=== PATIENT | female | born 1960 | race African-American/Black ===

== ENCOUNTER 2017-08-10 07:45 | Emergency (ER) | payer MEDICAID, OTHER ==
[~2017-08-10] VITALS: Ht 170.2 cm; Wt 75.0 kg
[2017-08-10 07:52] VITALS: BP 204/84; PULSE 67; RESP 16; TEMP 98; O2SAT 99
[2017-08-10 08:07] VITALS: BP 159/68; PULSE 66; RESP 15; O2SAT 100
[2017-08-10] MEDS ORDERED: SIMV10TA PO (08:07)
[2017-08-10] MEDS ORDERED: COUM10TA PO (08:07)
[2017-08-10] MEDS ORDERED: CLON0.2T PO (08:07)
[2017-08-10] MEDS ORDERED: AMBI10TA PO (08:07)
[2017-08-10] MEDS ORDERED: LISI-515 PO (08:07)
[2017-08-10] MEDS ORDERED: ACETAMINOPHEN 325 MG TAB PO ONE (08:15)
[2017-08-10 08:35] LABS: AUTOMATED NEUTROPHIL # 3.3 TH/MM3 (1.8-7.7); BASOPHIL % 0.4 % (0.0-2.0); EOSINOPHIL # 0.1 TH/MM3 (0-0.4); EOSINOPHIL % 1.8 % (0.0-4.0); HEMATOCRIT 35.5 % (35.0-46.0); HEMOGLOBIN 12.4 GM/DL (11.6-15.3); LYMPH % 28.2 % (9.0-44.0); LYMPHOCYTE # 1.6 TH/MM3 (1.0-4.8); MEAN CELL VOLUME 95.9 FL (80.0-100.0); MEAN CORPUSCULAR HEMOGLOBIN 33.4 PG (27.0-34.0); MEAN CORPUSCULAR HGB CONC 34.8 % (32.0-36.0); MEAN PLATELET VOLUME 10.5 FL (7.0-11.0); MONOCYTE # 0.6 TH/MM3 (0-0.9); NEUT % 59.6 % (16.0-70.0); PLATELET COUNT 177 TH/MM3 (150-450); RED BLOOD COUNT 3.71 MIL/MM3 (4.00-5.30); RED CELL DISTRIBUTION WIDTH 13.8 % (11.6-17.2); WHITE BLOOD COUNT 5.5 TH/MM3 (4.0-11.0)
[2017-08-10 08:50] LABS: INTERNATIONAL NORMALIZED RATIO 2.8 RATIO; PROTHROMBIN TIME - PATIENT 28.3 SEC (9.8-11.6)
--- NOTE | 2017-08-10 08:57 | RADRPT ---
EXAM DATE: 08/10/2017 8:26 AM EDT AGE/SEX: 57 years / Female INDICATIONS: High blood pressure with headache CLINICAL DATA: This is the patient's initial encounter. Patient reports that signs and symptoms have been present for 2 days and indicates a pain score of 4/10. MEDICAL/SURGICAL HISTORY: Hypertension. CABG. RADIATION DOSE: 52.13 CTDI (mGy) COMPARISON: No prior exams available for comparison. TECHNIQUE: CT of the head without contrast. Using automated exposure control and adjustment of the mA and/or kV according to patient size, radiation dose was kept as low as reasonably achievable to ob tain optimal diagnostic quality images. DICOM format image data is available electronically for revi ew and comparison. FINDINGS: Cerebrum: There is a 1 cm hypodense region in the left basal ganglia with associated encephalomalaci a likely reflecting an old basal ganglia infarct. Ventricles are normal for age. No evidence of midli ne shift, mass lesion, hemorrhage or acute infarction. No extraaxial fluid collections are seen. Posterior Fossa: The cerebellum and brainstem are intact. The 4th ventricle is midline. The cerebe llopontine angle is unremarkable. Extracranial: The visualized portion of the orbits is intact. Skull: The calvaria is intact. No evidence of skull fracture. CONCLUSION: 1. 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 2. No acute intracranial abnormality. Electronically signed by: Liu Jamison MD 08/10/2017 8:56 AM EDT
[2017-08-10 09:00] LABS: ALKALINE PHOSPHATASE 80 U/L (45-117); TOTAL BILIRUBIN ADULT 0.4 MG/DL (0.2-1.0); TOTAL PROTEIN 7.6 GM/DL (6.4-8.2); TROPONIN I LESS THAN 0.02 NG/ML (0.02-0.05)
[2017-08-10 09:15] LABS: ALBUMIN 3.5 GM/DL (3.4-5.0); ALT (GPT) 17 U/L (10-53); BICARBONATE 25.3 MEQ/L (21.0-32.0); BLOOD UREA NITROGEN 10 MG/DL (7-18); CALCIUM 8.6 MG/DL (8.5-10.1); CHLORIDE 110 MEQ/L (98-107); CREATININE 0.83 MG/DL (0.50-1.00); GLOMERULAR FILTRATION RATE 71 ML/MIN (>89); GLUCOSE,RANDOM 126 MG/DL (74-106); SODIUM (NA) 143 MEQ/L (136-145)
[2017-08-10] MEDS ORDERED: hydrALAZINE HCL 20 MG/ML VIAL IV PUSH ONE (09:15)
[2017-08-10 09:19] LABS: AST (GOT) 45 U/L (15-37)
[2017-08-10 09:48] VITALS: BP 201/86; PULSE 60; RESP 18; O2SAT 99
[2017-08-10] MEDS ORDERED: amLODIPine BESYLATE 5 MG TAB PO ONE (10:00)
[2017-08-10] MEDS ORDERED: FURO1TAB62 PO (10:32)
[2017-08-10] MEDS ORDERED: KETOROLAC TROMETHAMINE 30 MG/ML (IVP) VIAL IV PUSH ONE (11:15)
[2017-08-10] MEDS ORDERED: diphenhydrAMINE HCL 50 MG/ML VIAL IV PUSH ONE (11:15)
[2017-08-10] MEDS ORDERED: PROCHLORPERAZINE INJ 10 MG/2 ML VIAL IV PUSH ONE (11:15)
[2017-08-10 11:57] VITALS: BP 198/87; PULSE 61; RESP 18; O2SAT 99
[2017-08-10 12:52] VITALS: BP 207/88; PULSE 55; RESP 18; O2SAT 99
[2017-08-10] MEDS ORDERED: AMLO5TAB2 PO (13:10)
--- NOTE | 2017-08-10 13:10 | PD ---
HPI Chief Complaint: Hypertension Time Seen by Provider: 08:01 Travel History International Travel<30 days: No Contact w/Intl Traveler<30days: No Traveled to known affect area: No History of Present Illness HPI Patient is a 57-year-old female who comes in complaining of high blood pressure and a headache. She says she has been having issues with her blood pressure for several days now. She has taken it several times each day and noted it to be high. She is currently taking lisinopril and clonidine for her blood pressure and says it does not seem to be helping. She says she has a right- sided headache that has been coming and going. She says she gets this headache often when her blood pressure is too high. She denies nausea or vomiting. She denies any blurred vision. She denies any chest pain or shortness of breath. She denies nausea or vomiting. Severity is mild. 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) Social History Alcohol Use: Yes (occassional) Tobacco Use: Yes Substance Use: No Allergies-Medications (Allergen,Severity, Reaction): Coded Allergies: caffeine (Verified Allergy, Unknown, 08/10/17) Reported Meds & Prescriptions Reported Meds & Active Scripts Active Reported Lasix (Furosemide) 20 Mg Tab 20 Mg PO DAILY Ambien (Zolpidem Tartrate) 10 Mg Tab 10 Mg PO HS PRN Clonidine (Clonidine HCl) 0.2 Mg Tab 0.2 Mg PO BID Coumadin (Warfarin) 10 Mg Tab 10 Mg PO DAILY Simvastatin 10 Mg Tab 10 Mg PO DAILY Lisinopril 20 Mg Tab 20 Mg PO DAILY Review of Systems Except as stated in HPI: all other systems reviewed are Neg General / Constitutional: No: Fever, Chills Eyes: No: Blurred Vision HENT: Positive: Headaches Cardiovascular: No: Chest Pain or Discomfort Respiratory: No: Shortness of Breath Gastrointestinal: No: Nausea, Vomiting Musculoskeletal: No: Myalgias, Edema Skin: No Rash, No Change in Pigmentation Neurologic: No: Weakness, Dizziness Physical Exam Narrative GENERAL: Awake and alert, no acute distress. SKIN: Focused skin assessment warm/dry. HEAD: Atraumatic. Normocephalic. EYES: Pupils equal and round and reactive. No scleral icterus. Extraocular movements intact. ENT: Mucous membranes pink and moist. NECK: Trachea midline. No JVD. CARDIOVASCULAR: Regular rate and rhythm. No murmur appreciated. RESPIRATORY: No accessory muscle use. Clear to auscultation. Breath sounds equal bilaterally. GASTROINTESTINAL: Abdomen soft, non-tender, nondistended. MUSCULOSKELETAL: No obvious deformities. No clubbing. No cyanosis. No edema. NEUROLOGICAL: Awake and alert. No obvious cranial nerve deficits. Motor grossly within normal limits. Normal speech. PSYCHIATRIC: Appropriate mood and affect; insight and judgment normal. Data Data Last Documented VS Vital Signs Date Time Temp Pulse Resp B/P (MAP) Pulse Ox O2 Delivery O2 Flow Rate FiO2 08/10/17 12:52 55 18 207/88 (127) 99 Room Air 08/10/17 07:52 98.0 Orders Orders Iv Access Insert/Monitor (08/10/17 08:11) Complete Blood Count With Diff (08/10/17 08:11) Comprehensive Metabolic Panel (08/10/17 08:11) Troponin I (08/10/17 08:11) Electrocardiogram (08/10/17 ) Ct Brain W/O Iv Contrast(Rout) (08/10/17 ) Acetaminophen (Tylenol) (08/10/17 08:15) Act Partial Throm Time (Ptt) (08/10/17 08:21) Prothrombin Time / Inr (Pt) (08/10/17 08:21) Hydralazine Inj (Apresoline Inj) (08/10/17 09:15) Amlodipine (Norvasc) (08/10/17 10:00) Ketorolac Inj (Toradol Inj) (08/10/17 11:15) Diphenhydramine Inj (Benadryl Inj) (08/10/17 11:15) Prochlorperazine Inj (Compazine Inj) (08/10/17 11:15) Labs Laboratory Tests Test 08/10/17 08:20 White Blood Count 5.5 TH/MM3 Red Blood Count 3.71 MIL/MM3 Hemoglobin 12.4 GM/DL Hematocrit 35.5 % Mean Corpuscular Volume 95.9 FL Mean Corpuscular Hemoglobin 33.4 PG Mean Corpuscular Hemoglobin Concent 34.8 % Red Cell Distribution Width 13.8 % Platelet Count 177 TH/MM3 Mean Platelet Volume 10.5 FL Neutrophils (%) (Auto) 59.6 % Lymphocytes (%) (Auto) 28.2 % Monocytes (%) (Auto) 10.0 % Eosinophils (%) (Auto) 1.8 % Basophils (%) (Auto) 0.4 % Neutrophils # (Auto) 3.3 TH/MM3 Lymphocytes # (Auto) 1.6 TH/MM3 Monocytes # (Auto) 0.6 TH/MM3 Eosinophils # (Auto) 0.1 TH/MM3 Basophils # (Auto) 0.0 TH/MM3 CBC Comment DIFF FINAL Differential Comment Prothrombin Time 28.3 SEC Prothromb Time International Ratio 2.8 RATIO Activated Partial Thromboplast Time 41.3 SEC Blood Urea Nitrogen 10 MG/DL Creatinine 0.83 MG/DL Random Glucose 126 MG/DL Total Protein 7.6 GM/DL Albumin 3.5 GM/DL Calcium Level 8.6 MG/DL Alkaline Phosphatase 80 U/L Aspartate Amino Transf (AST/SGOT) 45 U/L Alanine Aminotransferase (ALT/SGPT) 17 U/L Total Bilirubin 0.4 MG/DL Sodium Level 143 MEQ/L Potassium Level 4.6 MEQ/L Chloride Level 110 MEQ/L Carbon Dioxide Level 25.3 MEQ/L Anion Gap 8 MEQ/L Estimat Glomerular Filtration Rate 71 ML/MIN Troponin I LESS THAN 0.02 NG/ML MDM Medical Decision Making Medical Screen Exam Complete: Yes Emergency Medical Condition: Yes Medical Record Reviewed: Yes Interpretation(s) ECG shows normal sinus rhythm at a rate of 59, no ST elevation or depression, normal intervals Differential Diagnosis High blood pressure versus acute kidney injury versus migraine Narrative Course Patient is a 57-year-old female who comes in complaining of high blood pressure and headache. Exam shows no neurologic abnormalities. IV established, labs sent. Labs show no acute abnormalities. CT head performed shows no acute abnormalities. Last [address] 08/10/17 0000 Signed Impressions: CONCLUSION: 1. 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 2. No acute intracranial abnormality. Patient is on lisinopril and clonidine. Given a dose of amlodipine. Given a second dose of clonidine. She is given treatment for her headache, which she says has improved her pain. She is advised to follow-up with her doctor as she will need better blood pressure control. Advised return to the ED as needed for any worsening symptoms. Diagnosis Primary Impression: Hypertension Qualified Codes: I10 - Essential (primary) hypertension Patient Instructions: General Instructions, Hypertension (ED) Additional Instructions: Take all of your blood pressure medications. Follow-up with your doctor. Return anytime for any worsening symptoms. Scripts Amlodipine (Amlodipine) 5 Mg Tab 5 MG PO DAILY for Blood Pressure Management, #14 TAB 0 Refills Prov: Leigh Lopez MD 08/10/17 Disposition: 01 DISCHARGE HOME Condition: Stable Leigh Lopez MD Aug 10, 2017 13:10
[2017-08-10] MEDS ORDERED: cloNIDine HCL 0.2 MG TAB PO ONE (13:15)
--- NOTE | 2017-08-10 17:43 | EKG ---
Date Performed: 08/10/2017 Time Performed: 08:52:29 PTAGE: 57 years EKG: SINUS BRADYCARDIA POSSIBLE LEFT ATRIAL ENLARGEMENT NONSPECIFIC T-WAVE ABNORMALITY ABNORMAL ECG NO PREVIOUS TRACING DOCTOR: Kiera Corbin Interpretating Date/Time 08/10/2017 17:41:01
== END 2017-08-10 13:20 | disposition home or self-care (01) ==
LOC: NEPC 07:45
DX: I10 Essential (primary) hypertension (principal); R51 Headache; R00.1 Bradycardia, unspecified; R94.31 Abnormal electrocardiogram [ECG] [EKG]; G47.00 Insomnia, unspecified; Z79.01 Long term (current) use of anticoagulants; Z79.899 Other long term (current) drug therapy; Z72.0 Tobacco use; Z86.73 Personal history of transient ischemic attack (TIA), and cerebral infarction without residual deficits
CPT/HCPCS: 70450; 80053; 84484; 85025; 85610; 85730; 93005; 96374; 96375; 99285; J0780; J1200; J1885